=== PATIENT | female | born 1945 | race Caucasian/White ===

== ENCOUNTER 2023-11-24 12:31 | Inpatient (IN) | payer OTHER ==
[~2023-11-24] VITALS: Ht 154.9 cm; Wt 52.4 kg
[2023-11-24 13:00] VITALS: PULSE 120; RESP 20; O2SAT 95
[2023-11-24] MEDS: ASPirin 81 mg TAB PO ONE (13:04)
[2023-11-24] MEDS: dilTIAZem 25 MG/5 ML VIAL IV ONE (13:04)
[2023-11-24 13:55] LABS: Basophils # (auto) 0.1 10 ^3/uL (0-0.2); Basophils % (auto) 0.8 % (0.0-2.0); Eosinophils # (auto) 0.1 10 ^3/uL (0-0.8); Eosinophils % (auto) 1.1 % (0.0-7.0); Hematocrit 43.2 % (36.0-46.0); Hemoglobin 14.9 g/dL (12.2-16.2); Lymphocytes # (auto) 2.2 10 ^3/uL (0.4-5.4); Lymphocytes % (auto) 22.9 % (10.0-50.0); Mean Corpuscular Hgb Conc. 34.6 g/dL (32.0-36.0); Mean Corpuscular Volume 95.5 fL (80.0-100.0); Monocytes # (auto) 0.7 10 ^3/uL (0-1.3); Monocytes % (auto) 7.3 % (0.0-12.0); Neutrophils # (auto) 6.4 10 ^3/uL (1.6-8.6); Neutrophils % (auto) 67.9 % (37.0-80.0); Nucleated Red Blood Cells % 0.3 %; Platelet Count (auto) 287 10^3/uL (140-450); Red Blood Cells 4.52 10^6/uL (4.0-5.20); Red Cell Distribution Width 13.1 % (11.8-14.3); White Blood Cell 9.4 10^3/uL (4.4-10.8)
[2023-11-24 14:07] LABS: Anion Gap 9 (5-15); Carbon Dioxide 21 mmol/L (20-30); Chloride 112 mmol/L (98-107); Potassium 3.9 mmol/L (3.5-5.1); Sodium 142 mmol/L (136-145)
[2023-11-24 14:08] LABS: Calcium 9.1 mg/dL (8.7-10.4)
[2023-11-24 14:12] LABS: Glucose 83 mg/dL (74-106)
[2023-11-24 14:13] LABS: BUN/Creatinine Ratio 21.8 (10.0-20.0); Blood Urea Nitrogen 19 mg/dL (9-23); Magnesium 2.2 mg/dL (1.6-2.6)
[2023-11-24] MEDS: AMIODARONE BOLUS KIT 100 ML IV ONE (14:17)
[2023-11-24] MEDS: AMIODARONE 450mg/250ml AE 250 ML IV SCH (14:43)
[2023-11-24] MEDS ORDERED: NITROGLYCERIN 0.4 MG SL TAB SL PRN (16:00)
[2023-11-24] MEDS ORDERED: MORPHINE SULFATE INJ 2 MG/ml SYRG IV PRN (16:00)
[2023-11-24 16:17] LABS: LDL Cholesterol 138 mg/dL (< 100); Triglycerides 206 mg/dL (< 150)
[2023-11-24 16:19] LABS: Cholesterol 209 mg/dL (< 200); HDL Cholesterol 52 mg/dL (40-59)
[2023-11-24] MEDS: FUROSEMIDE 20 MG/2 ML VIAL IV ONE (16:46)
[2023-11-24] MEDS: POTASSIUM CHL 20 Meq TABLET PO ONE (16:47)
[2023-11-24] MEDS: METOPROLOL SUCCINATE XL 50 MG TAB PO ONE (16:47)
[2023-11-24] MEDS: ENOXAPARIN SOD 100 MG/1 ML SYRINGE SC ONE (16:48)
[2023-11-24] MEDS: FUROSEMIDE 20 MG/2 ML VIAL IV SCH (17:59)
[2023-11-24] MEDS: FUROSEMIDE 40 MG/4 ML VIAL IV ONE (18:35)
[2023-11-24] MEDS: DIGOXIN (250MCG/ML) 2 ML AMPULE IV ONE (18:35)
[2023-11-24] MEDS: MAGNESIUM SULFATE 1GM/100ML 100 ML IV ONE (18:35)
[2023-11-24 19:30] VITALS: PULSE 108; RESP 23; O2SAT 96
[2023-11-24 20:00] VITALS: BP 151/94; PULSE 102; RESP 19; TEMP 97.7; O2SAT 98
[2023-11-24] MEDS: METOPROLOL TARTRATE 25 MG TAB PO ONE (20:52)
[2023-11-24] MEDS: ENOXAPARIN SOD 100 MG/1 ML SYRINGE SC SCH (22:48)
[2023-11-24] MEDS: METOPROLOL TARTRATE 25 MG TAB PO SCH (22:50)
[2023-11-24] MEDS: ATORVASTATIN 20 MG TAB PO SCH (22:51)
[2023-11-25] VITALS (13 sets, daily range): BP systolic 102–143; BP diastolic 61–89; PULSE 65–100; RESP 16–20; TEMP 97.5–97.8; O2SAT 94–97
[2023-11-25 06:34] LABS: Basophils # (auto) 0.1 10 ^3/uL (0-0.2); Basophils % (auto) 1.4 % (0.0-2.0); Eosinophils # (auto) 0.3 10 ^3/uL (0-0.8); Eosinophils % (auto) 3.6 % (0.0-7.0); Hematocrit 46.1 % (36.0-46.0); Hemoglobin 15.9 g/dL (12.2-16.2); Lymphocytes # (auto) 2.5 10 ^3/uL (0.4-5.4); Lymphocytes % (auto) 34.5 % (10.0-50.0); Mean Corpuscular Hemoglobin 33.4 pg (28.0-32.0); Mean Corpuscular Hgb Conc. 34.5 g/dL (32.0-36.0); Mean Corpuscular Volume 96.8 fL (80.0-100.0); Monocytes # (auto) 0.5 10 ^3/uL (0-1.3); Monocytes % (auto) 6.9 % (0.0-12.0); Neutrophils # (auto) 3.8 10 ^3/uL (1.6-8.6); Neutrophils % (auto) 53.6 % (37.0-80.0); Nucleated Red Blood Cells % 0.1 %; Platelet Count (auto) 322 10^3/uL (140-450); Red Blood Cells 4.76 10^6/uL (4.0-5.20); Red Cell Distribution Width 13.2 % (11.8-14.3); White Blood Cell 7.1 10^3/uL (4.4-10.8)
[2023-11-25 06:40] LABS: Alanine Aminotransferase 24 U/L (7-40); Albumin 4.4 g/dL (3.2-4.8); Alkaline Phosphatase 62 U/L (46-116); Anion Gap 5 (5-15); Aspartate Aminotransferase 26 U/L (13-40); BUN/Creatinine Ratio 19.1 (10.0-20.0); Blood Urea Nitrogen 18 mg/dL (9-23); Calcium 9.4 mg/dL (8.7-10.4); Carbon Dioxide 26 mmol/L (20-30); Chloride 109 mmol/L (98-107); Glucose 97 mg/dL (74-106); Sodium 140 mmol/L (136-145)
[2023-11-25 06:41] LABS: Bilirubin, Total 0.7 mg/dL (0.2-1.0); Total Protein 7.6 g/dL (5.7-8.2)
[2023-11-25] MEDS: ACETAMINOPHEN 500 MG TAB PO PRN (06:44)
[2023-11-25] MEDS ORDERED: VERA120T92 PO (09:51)
[2023-11-25] MEDS ORDERED: AMIO200T33 PO (09:51)
[2023-11-25] MEDS ORDERED: HYDR25TA4 PO (09:51)
[2023-11-25] MEDS ORDERED: ATOR10TA PO (09:51)
[2023-11-25] MEDS: DIGOXIN 0.125 MG TAB PO SCH (09:56)
[2023-11-25] MEDS: ENOXAPARIN SOD 60 MG/0.6 ML SYRINGE SC SCH (09:56)
[2023-11-25] MEDS ORDERED: ANGIOMAX 250 MG VIAL IV ONE (11:11)
[2023-11-25] MEDS ORDERED: VERAPAMIL 2.5MG/ML INJ 2ML VIAL IV ONE (11:11)
[2023-11-25] MEDS ORDERED: HEPARIN SODIUM (PORCINE) 5000 UNITS/ML 1ML VIAL ONE (11:11)
[2023-11-25] MEDS ORDERED: SODIUM CHL 0.9% 0 ML ONE (11:12)
[2023-11-25] MEDS ORDERED: LIDOCAINE 2%HCL (LOCAL ANESTH.) INJ 20ML MDV ONE (11:12)
[2023-11-25] MEDS ORDERED: MIDAZOLAM HCL 2MG/2ML 2ml VIAL (1mg/ml) ONE (11:12)
[2023-11-25] MEDS ORDERED: fentaNYL CITRATE 100 MCG/2 ML VL ONE (11:12)
[2023-11-25] MEDS ORDERED: NITROGLYCERIN 50MG/250ML 250 ML IV ONE (11:16)
[2023-11-25] MEDS ORDERED: IODIXANOL 320MG/ML 100ML BTL IV ONE (12:02)
[2023-11-25 15:09] LABS: INR 1.08 (0.9-1.15); Prothrombin Time 11.4 sec (9.3-11.8)
[2023-11-25] MEDS: METOPROLOL TARTRATE 25 MG TAB PO SCH (22:03)
[2023-11-26] VITALS (8 sets, daily range): BP systolic 103–151; BP diastolic 56–83; PULSE 60–113; RESP 14–20; TEMP 97.1–98.4; O2SAT 95–97
[2023-11-26 05:32] LABS: Basophils # (auto) 0.1 10 ^3/uL (0-0.2); Basophils % (auto) 1.1 % (0.0-2.0); Eosinophils # (auto) 0.3 10 ^3/uL (0-0.8); Eosinophils % (auto) 3.6 % (0.0-7.0); Hematocrit 42.5 % (36.0-46.0); Lymphocytes # (auto) 2.8 10 ^3/uL (0.4-5.4); Mean Corpuscular Hemoglobin 33.7 pg (28.0-32.0); Mean Corpuscular Hgb Conc. 35.4 g/dL (32.0-36.0); Mean Corpuscular Volume 95.2 fL (80.0-100.0); Monocytes # (auto) 0.8 10 ^3/uL (0-1.3); Neutrophils # (auto) 4.5 10 ^3/uL (1.6-8.6); Neutrophils % (auto) 53.3 % (37.0-80.0); Nucleated Red Blood Cells % 0.2 %; Platelet Count (auto) 268 10^3/uL (140-450); Red Blood Cells 4.46 10^6/uL (4.0-5.20); Red Cell Distribution Width 12.9 % (11.8-14.3); White Blood Cell 8.4 10^3/uL (4.4-10.8)
[2023-11-26 05:47] LABS: Alanine Aminotransferase 21 U/L (7-40); Albumin 4.2 g/dL (3.2-4.8); Alkaline Phosphatase 58 U/L (46-116); Anion Gap 7 (5-15); Aspartate Aminotransferase 20 U/L (13-40); BUN/Creatinine Ratio 24.5 (10.0-20.0); Blood Urea Nitrogen 23 mg/dL (9-23); Calcium 9.5 mg/dL (8.7-10.4); Carbon Dioxide 25 mmol/L (20-30); Chloride 107 mmol/L (98-107); Glucose 94 mg/dL (74-106); Potassium 3.8 mmol/L (3.5-5.1); Sodium 139 mmol/L (136-145)
[2023-11-26 05:48] LABS: Bilirubin, Total 0.7 mg/dL (0.2-1.0); Total Protein 7.2 g/dL (5.7-8.2)
[2023-11-26] MEDS: METOPROLOL TARTRATE 25 MG TAB PO SCH (10:38)
[2023-11-26 22:27] LABS: Urine Bacteria FEW /hpf (None Seen); Urine Blood 1+ /uL (Negative); Urine Clarity Clear (Clear); Urine Color Colorless (Yellow); Urine Protein, UAD Negative (Negative); Urine Specific Gravity 1.008 (1.001-1.035); Urine Urobilinogen Normal (Negative); Urine WBC 1 /hpf (0 - 5)
[2023-11-27 01:00] VITALS: BP 120/74; PULSE 80; RESP 14; TEMP 98.5; O2SAT 96
[2023-11-27 05:00] VITALS: BP 126/61; PULSE 60; RESP 14; TEMP 97.9; O2SAT 99
[2023-11-27 06:18] LABS: Alanine Aminotransferase 22 U/L (7-40); Albumin 4.5 g/dL (3.2-4.8); Alkaline Phosphatase 63 U/L (46-116); Anion Gap 7 (5-15); Aspartate Aminotransferase 23 U/L (13-40); BUN/Creatinine Ratio 18.7 (10.0-20.0); Blood Urea Nitrogen 17 mg/dL (9-23); Carbon Dioxide 29 mmol/L (20-30); Chloride 104 mmol/L (98-107); Glucose 95 mg/dL (74-106); Sodium 140 mmol/L (136-145)
[2023-11-27 06:19] LABS: Bilirubin, Total 0.9 mg/dL (0.2-1.0); Total Protein 7.7 g/dL (5.7-8.2)
[2023-11-27 06:26] LABS: Basophils # (auto) 0.1 10 ^3/uL (0-0.2); Eosinophils # (auto) 0.3 10 ^3/uL (0-0.8); Eosinophils % (auto) 4.2 % (0.0-7.0); Hematocrit 44.6 % (36.0-46.0); Hemoglobin 15.5 g/dL (12.2-16.2); Lymphocytes # (auto) 2.4 10 ^3/uL (0.4-5.4); Mean Corpuscular Hemoglobin 33.3 pg (28.0-32.0); Mean Corpuscular Hgb Conc. 34.7 g/dL (32.0-36.0); Mean Corpuscular Volume 96.1 fL (80.0-100.0); Monocytes # (auto) 0.7 10 ^3/uL (0-1.3); Neutrophils # (auto) 3.9 10 ^3/uL (1.6-8.6); Neutrophils % (auto) 52.8 % (37.0-80.0); Nucleated Red Blood Cells % 0.4 %; Platelet Count (auto) 290 10^3/uL (140-450); Red Blood Cells 4.65 10^6/uL (4.0-5.20); Red Cell Distribution Width 12.6 % (11.8-14.3); White Blood Cell 7.4 10^3/uL (4.4-10.8)
[2023-11-27 08:00] VITALS: PULSE 98; RESP 14; O2SAT 95
[2023-11-27 09:00] VITALS: BP 99/63; PULSE 98; RESP 18; O2SAT 96
[2023-11-27] MEDS: FUROSEMIDE 20 MG TAB PO SCH (09:55)
[2023-11-27 13:00] VITALS: BP 106/61; PULSE 86; RESP 18; TEMP 97.7; O2SAT 96
[2023-11-27] MEDS ORDERED: APIX5TAB PO (13:14)
[2023-11-27] MEDS ORDERED: DIGO1TAB48 PO (13:14)
[2023-11-27] MEDS ORDERED: MET25T PO (13:14)
[2023-11-27 15:03] VITALS: BP 109/61; PULSE 86; RESP 18; TEMP 97.7; O2SAT 96
[2023-11-27] MEDS ORDERED: APIXABAN 5 MG TAB PO SCH (22:00)
[2023-11-27] MEDS ORDERED: ATORVASTATIN 20 MG TAB PO SCH (22:00)
== END 2023-11-27 16:14 | disposition home or self-care (01) | DRG 280 ==
LOC: EDBD 12:31 → ER 12:31 → EDUNIT# 12:31 → TELE 15:58 → UNDOADMIN 15:58 → TELE 17:32 → TELE-CENTR 17:32
PROVIDERS: ADMIT Internal Medicine; ATTEND Internal Medicine
PROC: 4A023N7 Measurement of Cardiac Sampling and Pressure, Left Heart, Percutaneous Approach (ICD-10-PCS; principal; 2023-11-25)
PROC: B2111ZZ Fluoroscopy of Multiple Coronary Arteries using Low Osmolar Contrast (ICD-10-PCS; 2023-11-25)
DX: I11.0 Hypertensive heart disease with heart failure (principal); I50.33 Acute on chronic diastolic (congestive) heart failure; I21.A1 Myocardial infarction type 2; I48.0 Paroxysmal atrial fibrillation; E78.5 Hyperlipidemia, unspecified; I25.10 Atherosclerotic heart disease of native coronary artery without angina pectoris; I08.3 Combined rheumatic disorders of mitral, aortic and tricuspid valves; Z79.02 Long term (current) use of antithrombotics/antiplatelets; Z88.3 Allergy status to other anti-infective agents; Z91.199 Patient's noncompliance with other medical treatment and regimen due to unspecified reason; R73.03 Prediabetes
CPT/HCPCS: 36415; 71045; 73700; 80048; 80053; 80061; 80162; 81001; 83036; 83735; 83880; 84443; 84484; 85025; 85379; 85610; 85730; 93005; 93306; 93458; 93970; 96374; 96375; 97163; 99152; 99291; C1894; G0378; J2250; Q9967